=== PATIENT | female | born 1990 | race Two or more races ===

== ENCOUNTER 2021-10-04 12:48 | Emergency (ER) | payer OTHER ==
[~2021-10-04] VITALS: Ht 162.6 cm; Wt 113.4 kg
[2021-10-04 14:22] VITALS: BP 126/75
[2021-10-04] MEDS ORDERED: ACETAMINOPHEN 500 MG TAB PO ONE (14:30)
[2021-10-04] MEDS ORDERED: ONDANSETRON ODT 4 MG TAB PO ONE (14:30)
[2021-10-04] MEDS ORDERED: IBUP800T27 PO (14:54)
[2021-10-04] MEDS ORDERED: METH750T22 PO (14:54)
== END 2021-10-04 15:08 | disposition home or self-care (01) ==
LOC: ER 12:48
DX: G43.909 Migraine, unspecified, not intractable, without status migrainosus (principal); R51.9 Headache, unspecified
CPT/HCPCS: 70450; 99284; Q0162